=== PATIENT | male | born 1970 | race Two or more races ===

== ENCOUNTER 2020-10-29 23:03 | Emergency (ER) | payer BC ==
[~2020-10-29] VITALS: Ht 170.2 cm; Wt 92.0 kg
[2020-10-29 23:05] VITALS: BP 154/93
[2020-10-29] MEDS ORDERED: ONDANSETRON 2MG/ML, 2ML ONE (23:29)
[2020-10-29] MEDS ORDERED: FAMOTIDINE 20 MG/2 ML ONE (23:29)
[2020-10-29] MEDS ORDERED: ONDANSETRON 2MG/ML, 2ML IVPush ONE (23:30)
[2020-10-29] MEDS ORDERED: SODIUM CHLORIDE 0.9% 1,000ML IVBOLUS ONE (23:30)
[2020-10-29] MEDS ORDERED: SODIUM CHLORIDE FLUSH 10ML SYR IVF ONE (23:30)
[2020-10-29] MEDS ORDERED: FAMOTIDINE 20 MG/2 ML IVPush ONE (23:30)
--- NOTE | 2020-10-29 23:30 | NUR ---
THIS IS A 49Y M THAT COMES IN FOR ABD PAIN. PT STS HE BOUGHT TRI TIP FRIDAY AND LEFT IT ON THE TABLE AND ATE IT FRIDAY NIGHT NOW HAS ABD PAIN WITH VOMITING. PT ALSO REPORTS LACK OF BOWEL MOVEMENTS UNK LAST BM PT IS NOT DISCLOSING MUCH INFORMATION. PT CONNECTED TO MONITORING VSS AWAITING ORDERS AT THIS TIME
--- NOTE | 2020-10-29 23:40 | NUR ---
PT EDUCATED ON NEED FOR URINE SAMPLE AT THIS TIME, EDUCATED ON CLEAN CATCH. PT STS UNABLE TO GO AT THIS TIME, PROVIDED URINAL
--- NOTE | 2020-10-29 23:40 | NUR ---
PIV STARTED PT MEDICATED PER NOV, PT TO XRAY AT THIS TIME
[2020-10-29 23:44] LABS: BASOPHILS % (AUTO) 1 % (0-1); EOSINOPHILS % (AUTO) 1 % (1-7); LYMPHOCYTES % (AUTO) 11 % (22-44); MEAN CORPUSCULAR HEMOGLOBIN 34.8 pg (27.5-34.5); MEAN CORPUSCULAR HGB CONC 34.6 g/dL (33.2-36.2); MONOCYTES % (AUTO) 6 % (2-9); NEUTROPHILS % (AUTO) 82 % (42-75); PLATELET COUNT 287 x10^3/uL (130-400); RED BLOOD COUNT 4.28 x10^6/uL (4.38-5.82)
[2020-10-29 23:45] LABS: MD NO
--- NOTE | 2020-10-29 23:45 | NUR ---
PT BACK FROM XRAY AT THIS TIME FLUIDS STILL INFUSING W/O DIFFICULTY
[2020-10-29 23:50] LABS: ALANINE AMINOTRANSFERASE 40 U/L (12-78); ALBUMIN 3.8 g/dL (3.4-5.0); ANION GAP 8 mmol/L (5-15); CALCIUM 8.6 mg/dL (8.5-10.1); CHLORIDE 106 mmol/L (98-107)
[2020-10-29 23:53] LABS: ALKALINE PHOSPHATASE 86 U/L (45-117); BILIRUBIN,TOTAL 0.5 mg/dL (0.2-1.0); TOTAL PROTEIN 7.6 g/dL (6.4-8.2)
--- NOTE | 2020-10-30 | NUR ---
PT REMINDED OF NEED FOR URINE SAMPLE EDUCATED ON WHY WE NEED ONE.
--- NOTE | 2020-10-30 00:38 | NUR ---
PT CONTINUES TO BE UNABLE TO PRODUCE URINE SAMPLE AT THIS TIME
== END 2020-10-30 01:08 | disposition home or self-care (01) ==
LOC: ED 10-30 01:00
DX: N18.2 Chronic kidney disease, stage 2 (mild) (principal); R73.9 Hyperglycemia, unspecified; R11.2 Nausea with vomiting, unspecified; R10.9 Unspecified abdominal pain
CPT/HCPCS: 36415; 74021; 80053; 83690; 85025; 96374; 96375; 99284; J2405; J7030

== ENCOUNTER 2020-11-13 12:50 | Inpatient (IN) | payer BC ==
[~2020-11-13] VITALS: Ht 170.2 cm; Wt 94.4 kg
--- NOTE | 2020-11-13 13:09 | NUR ---
first contact with pt. pt c/o lower abd pain radiating to right flank with n/v since sat. pt denies any other symptoms. pt's aox4. resps even and unlabored. bp/spo2 monitors in place. call light within reach.
--- NOTE | 2020-11-13 13:10 | NUR ---
pt amb to br with steady gait. urine cup given.
--- NOTE | 2020-11-13 13:32 | NUR ---
pt provided urine sample. urine sample collected and ua sent.
[2020-11-13 13:42] LABS: MICROSCOPIC AUTO
[2020-11-13 14:19] LABS: ALANINE AMINOTRANSFERASE 26 U/L (12-78); ALBUMIN 3.6 g/dL (3.4-5.0); ANION GAP 8 mmol/L (5-15); CALCIUM 9.1 mg/dL (8.5-10.1); CHLORIDE 105 mmol/L (98-107); CREATININE 2.44 mg/dL (0.7-1.3)
[2020-11-13 14:20] LABS: ALKALINE PHOSPHATASE 82 U/L (45-117); BILIRUBIN,TOTAL 0.9 mg/dL (0.2-1.0); TOTAL PROTEIN 7.5 g/dL (6.4-8.2)
--- NOTE | 2020-11-13 14:27 | NUR ---
warm blanket given. pt requesting pain med. edmd notified.
[2020-11-13] MEDS ORDERED: OXYcodone/APAP 5/325MG TABLET PO ONE (14:30)
[2020-11-13] MEDS ORDERED: OXYcodone/APAP 5/325MG TABLET ONE (14:48)
[2020-11-13 15:06] LABS: BASOPHILS % (AUTO) 0 % (0-1); EOSINOPHILS % (AUTO) 0 % (1-7); LYMPHOCYTES % (AUTO) 13 % (22-44); MEAN CORPUSCULAR HEMOGLOBIN 34.8 pg (27.5-34.5); MEAN CORPUSCULAR HGB CONC 34.2 g/dL (33.2-36.2); MEAN PLATELET VOLUME 8.8 fL (7.4-10.4); MONOCYTES % (AUTO) 8 % (2-9); NEUTROPHILS % (AUTO) 78 % (42-75); PLATELET COUNT 258 x10^3/uL (130-400); RED BLOOD COUNT 4.17 x10^6/uL (4.38-5.82); RED CELL DISTRIBUTION WIDTH 12.5 % (9.4-14.8)
--- NOTE | 2020-11-13 15:08 | NUR ---
PT MEIDICATED PER EMAR. PT TOLERATED WELL.
[2020-11-13 15:19] LABS: MD NO
--- NOTE | 2020-11-13 16:13 | NUR ---
pt resting in [facility]. resps even and unlabored. bp/spo2 monitors in place. call light within reach.
[2020-11-13] MEDS ORDERED: SODIUM CHLORIDE 0.9% 1,000ML IVBOLUS ONE (16:30)
--- NOTE | 2020-11-13 16:35 | NUR ---
PIV EST ON L HAND WITH NO COMPLICATIONS. NS INFUSING AT THIS TIME.
--- NOTE | 2020-11-13 17:42 | NUR ---
pt resting in [place]. pt's aox4. resps even and unlabored. bp/spo2 monitors in place. call light within reach.
--- NOTE | 2020-11-13 17:57 | NUR ---
HOSPITALIST AT BEDSIDE AT THIS TIME.
[2020-11-13] MEDS ORDERED: ALBU0.63 NEB (18:07)
[2020-11-13] MEDS ORDERED: VALA10007 PO (18:08)
--- NOTE | 2020-11-13 18:11 | NUR ---
pt amb to br with steady gait.
[2020-11-13] MEDS ORDERED: ONDANSETRON 2MG/ML, 2ML IVPush PRN (18:30)
[2020-11-13] MEDS ORDERED: morphine SULFATE 10 MG/ML, 1ML IVPush PRN (18:30)
[2020-11-13] MEDS ORDERED: ACETAMINOPHEN 325 MG TABLET PO PRN (18:30)
[2020-11-13] MEDS ORDERED: ONDANSETRON ODT 4 MG PO PRN (18:30)
--- NOTE | 2020-11-13 18:45 | NUR ---
report given to shravan gore. all questions answered.
[2020-11-13 19:17] VITALS: BP 128/85
[2020-11-13] MEDS ORDERED: ALBUTEROL HFA 90 MCG/SPRAY INH PRN (19:30)
[2020-11-13] MEDS: LACTATED RINGERS 1,000 ML IV SCH (20:29)
[2020-11-13] MEDS: VALACYCLOVIR 500MG TABLET PO SCH (20:29)
[2020-11-14 01:49] VITALS: BP 97/58
[2020-11-14 06:29] LABS: BASOPHILS % (AUTO) 1 % (0-1); EOSINOPHILS % (AUTO) 1 % (1-7); LYMPHOCYTES % (AUTO) 14 % (22-44); MEAN CORPUSCULAR HEMOGLOBIN 34.5 pg (27.5-34.5); MEAN PLATELET VOLUME 8.2 fL (7.4-10.4); MONOCYTES % (AUTO) 10 % (2-9); NEUTROPHILS % (AUTO) 75 % (42-75); PLATELET COUNT 242 x10^3/uL (130-400); RED BLOOD COUNT 3.87 x10^6/uL (4.38-5.82); RED CELL DISTRIBUTION WIDTH 12.2 % (9.4-14.8)
[2020-11-14 06:31] LABS: MD NO
[2020-11-14 06:34] LABS: ANION GAP 4 mmol/L (5-15); CALCIUM 8.5 mg/dL (8.5-10.1); CHLORIDE 107 mmol/L (98-107); CREATININE 2.18 mg/dL (0.7-1.3)
[2020-11-14] MEDS ORDERED: IPRA30SP NAS (06:57)
[2020-11-14 07:00] VITALS: BP 122/76
[2020-11-14] MEDS: TAMSULOSIN 0.4 MG CAP.ER.24H PO SCH (07:55)
[2020-11-14] MEDS: VALACYCLOVIR 500MG TABLET PO SCH ×2 (07:57→22:59)
[2020-11-14] MEDS: IPRATROPIUM NASAL 0.03%, 30ML NAS PRN ×2 (10:51→22:59)
[2020-11-14] MEDS ORDERED: OMNIPAQUE 350 MG/ML, 50 ML BOTTLE ONE (11:42)
[2020-11-14] MEDS ORDERED: CHLORHEXIDINE 15 ML UDC MM ONE (12:00)
[2020-11-14] MEDS ORDERED: PROPOFOL 50 ML ONE ×2 (12:19→13:05)
[2020-11-14] MEDS ORDERED: DEXAMETHASONE 4 MG/ML, 1ML ONE (12:20)
[2020-11-14] MEDS ORDERED: FENTANYL PF 250 MCG/5ML ONE (12:20)
[2020-11-14] MEDS ORDERED: ONDANSETRON 2MG/ML, 2ML ONE (12:20)
[2020-11-14] MEDS ORDERED: OXYcodone 5 MG/5 ML ORAL.SOL UDC PO PRN (13:00)
[2020-11-14] MEDS ORDERED: DIPHENHYDRAMINE 50 MG/ML, 1ML IVPush PRN (13:00)
[2020-11-14] MEDS ORDERED: EPHEDRINE 50 MG/ML, 1ML IVPush PRN (13:00)
[2020-11-14] MEDS ORDERED: PROMETHAZINE 25 MG/ML, 1ML IVPush PRN (13:00)
[2020-11-14] MEDS ORDERED: MEPERIDINE/PF 25MG/0.5ML IVPush PRN (13:00)
[2020-11-14] MEDS ORDERED: LABETALOL 5MG/ML, 20ML IV PRN (13:00)
[2020-11-14] MEDS ORDERED: FENTANYL PF 100 MCG/2ML IV PRN (13:00)
[2020-11-14] MEDS ORDERED: EPHEDRINE 50 MG/ML, 1ML IM PRN (13:00)
[2020-11-14] MEDS ORDERED: KETOROLAC 30 MG/1 ML IVPush PRN ×2 (13:00→16:00)
[2020-11-14] MEDS ORDERED: DIAZEPAM 5 MG/ML, 2ML IVPush PRN (13:00)
[2020-11-14] MEDS ORDERED: morphine SULFATE 10 MG/ML, 1ML IVPush PRN (13:00)
[2020-11-14] MEDS ORDERED: ACETAMINOPHEN 325 MG TABLET PO PRN (13:00)
[2020-11-14] MEDS ORDERED: ONDANSETRON 2MG/ML, 2ML IVPush PRN (13:00)
[2020-11-14] MEDS ORDERED: OMNIPAQUE 350 MG/ML, 50 ML BOTTLE IV ONE (13:11)
[2020-11-14 15:20] VITALS: BP 100/62
[2020-11-14] MEDS: PHENAZOPYRIDINE 200 MG TABLET PO SCH ×2 (16:43→22:58)
[2020-11-14] MEDS: OXYcodone/APAP 5/325MG TABLET PO PRN ×2 (16:43→23:04)
[2020-11-14 19:09] VITALS: BP 103/62
[2020-11-14] MEDS: LACTATED RINGERS 1,000 ML IV SCH (22:59)
[2020-11-15 00:03] VITALS: BP 99/59
[2020-11-15 04:51] LABS: BASOPHILS % (AUTO) 0 % (0-1); EOSINOPHILS % (AUTO) 0 % (1-7); LYMPHOCYTES % (AUTO) 14 % (22-44); MEAN CORPUSCULAR HEMOGLOBIN 35.5 pg (27.5-34.5); MEAN PLATELET VOLUME 8.2 fL (7.4-10.4); MONOCYTES % (AUTO) 8 % (2-9); NEUTROPHILS % (AUTO) 78 % (42-75); PLATELET COUNT 233 x10^3/uL (130-400); RED BLOOD COUNT 3.71 x10^6/uL (4.38-5.82); RED CELL DISTRIBUTION WIDTH 12.1 % (9.4-14.8)
[2020-11-15 04:53] LABS: MD NO
[2020-11-15 05:01] LABS: ANION GAP 6 mmol/L (5-15); CALCIUM 8.2 mg/dL (8.5-10.1); CHLORIDE 108 mmol/L (98-107); CREATININE 2.01 mg/dL (0.7-1.3)
[2020-11-15 05:31] VITALS: BP 107/64
[2020-11-15 07:07] VITALS: BP 108/71
[2020-11-15] MEDS: VALACYCLOVIR 500MG TABLET PO SCH (07:58)
[2020-11-15] MEDS: PHENAZOPYRIDINE 200 MG TABLET PO SCH ×2 (07:58→15:40)
[2020-11-15] MEDS: TAMSULOSIN 0.4 MG CAP.ER.24H PO SCH (07:59)
[2020-11-15] MEDS: IPRATROPIUM NASAL 0.03%, 30ML NAS PRN (08:01)
[2020-11-15 13:15] VITALS: BP 130/78
[2020-11-15] MEDS ORDERED: PHEN-583 PO ×2 (15:10)
[2020-11-15] MEDS ORDERED: TAMS-11 PO (15:10)
[2020-11-15] MEDS ORDERED: OXYC1TAB14 PO (15:10)
== END 2020-11-15 16:40 | disposition home or self-care (01) | DRG 660 ==
LOC: ED 16:45 → SUATTDRO 17:34 → EDIP 18:20 → 4NE 19:00 → DCLOUNGE 11-15 16:22
PROVIDERS: ADMIT Family Medicine; ATTEND Family Medicine
PROC: 0T768DZ Dilation of Right Ureter with Intraluminal Device, Via Natural or Artificial Opening Endoscopic (ICD-10-PCS; 2020-11-14)
PROC: 0T7D8ZZ Dilation of Urethra, Via Natural or Artificial Opening Endoscopic (ICD-10-PCS; 2020-11-14)
PROC: 0TC68ZZ Extirpation of Matter from Right Ureter, Via Natural or Artificial Opening Endoscopic (ICD-10-PCS; principal; 2020-11-14 12:00)
DX: N13.1 Hydronephrosis with ureteral stricture, not elsewhere classified (principal); N20.1 Calculus of ureter; N17.0 Acute kidney failure with tubular necrosis; R31.9 Hematuria, unspecified; D72.829 Elevated white blood cell count, unspecified; E66.9 Obesity, unspecified; J45.20 Mild intermittent asthma, uncomplicated; N35.911 Unspecified urethral stricture, male, meatal; N40.0 Benign prostatic hyperplasia without lower urinary tract symptoms; N18.9 Chronic kidney disease, unspecified; Z68.31 Body mass index [BMI] 31.0-31.9, adult
CPT/HCPCS: 36415; 74176; 74420; 80048; 80053; 81001; 82360; 83690; 83735; 85025; 87635; 88300; 96360; 99285; G0378; J1100; J2405; J2704; J3010; Q9967; C2617; J2270; J7030; J7120

== ENCOUNTER → 2020-11-13 | Outpatient (CLI) | payer BC ==
[~2020-11-13] MED LIST: ALBU0.63 NEB; IPRA30SP NAS; OXYC1TAB14 PO; PHEN-583 PO; TAMS-11 PO; VALA10007 PO
== END | disposition home or self-care (01) ==
LOC: RAD 09:44
PROVIDERS: ATTEND Emergency Medicine
DX: K76.0 Fatty (change of) liver, not elsewhere classified (principal); N13.30 Unspecified hydronephrosis
CPT/HCPCS: 76700

== ENCOUNTER 2021-01-06 12:54 | Emergency (ER) | payer BC ==
[~2021-01-06] VITALS: Ht 170.2 cm; Wt 94.6 kg
--- NOTE | 2021-01-06 13:32 | NUR ---
PT HAD URETER STENT PLACED LAST WEEK. NOW FEELING LIKE HE IS UNABLE TO EMPTY BLADDER COMPLETELY. FLOW IS DECREASED. DENIES PAIN OR BLOOD IN URINE
--- NOTE | 2021-01-06 13:56 | NUR ---
POST VOID BLADDER SCAN 45 ML
[2021-01-06 14:12] LABS: MICROSCOPIC AUTO
--- NOTE | 2021-01-06 14:28 | NUR ---
BREAK RN NOTE: US AT BEDSIDE, PT A&O X4, SPEAKING IN FULL SENTENCES, DEVON
[2021-01-06 15:03] LABS: ANION GAP 6 mmol/L (5-15); CALCIUM 9.6 mg/dL (8.5-10.1); CHLORIDE 107 mmol/L (98-107); CREATININE 1.62 mg/dL (0.7-1.3)
[2021-01-06 15:04] LABS: ALBUMIN 3.9 g/dL (3.4-5.0)
--- NOTE | 2021-01-06 16:31 | NUR ---
Patient given discharge instructions and they have confirmed that they understand the instructions. Patient ambulatory with steady gait.
[2021-01-06 16:32] VITALS: BP 142/80
== END 2021-01-06 16:35 | disposition home or self-care (01) ==
LOC: ED 15:46
DX: N20.1 Calculus of ureter (principal); J45.909 Unspecified asthma, uncomplicated
CPT/HCPCS: 36415; 76770; 80048; 81001; 82040; 87086; 99284